=== PATIENT | female | born 1985 | race Two or more races ===

== ENCOUNTER 2020-07-08 15:44 | Emergency (ER) | payer MEDICAID ==
[~2020-07-08] VITALS: Ht 165.1 cm; Wt 68.0 kg
[2020-07-08] MEDS ORDERED: SODIUM CHLORIDE 0.9% 1,000 ML IV ONE (16:50)
[2020-07-08 17:16] LABS: BASOPHILS % 0.8 % (0.0-2.0); EOSINOPHILS % 3.2 % (0.0-5.0); HEMATOCRIT. 38.6 % (36.0-48.0); HEMOGLOBIN. 12.8 g/dL (12.0-16.0); MEAN CORPUSCULAR HEMOGLOBIN 25.9 pg (28.0-32.0); MEAN PLATELET VOLUME 9.9 fl (7.4-10.4); PLATELET 229 x1000/uL (130-400); RED BLOOD CELL COUNT 4.94 mill/uL (4.2-5.4); RED CELL DISTRIBUTION WIDTH 14.4 % (11.6-14.6)
[2020-07-08 17:23] LABS: CHLORIDE 107 mEq/L (98-107)
[2020-07-08] MEDS ORDERED: ACETAMINOPHEN 500MG TABLET PO NR (18:00)
[2020-07-08 18:05] VITALS: BP 127/50
[2020-07-08 19:11] LABS: CLARITY URINE CLEAR (CLEAR); COLOR URINE YELLOW (YELLOW); KETONES URINE NEGATIVE (NEGATIVE); LEUKOCYTE ESTERASE URINE TRACE (NEGATIVE); NITRITE URINE NEGATIVE (NEGATIVE); OCCULT BLOOD URINE NEGATIVE (NEGATIVE); PROTEIN URINE NEGATIVE (NEGATIVE); SPECIFIC GRAVITY URINE 1.015 (1.005-1.030); UROBILINOGEN URINE 0.2 E.U./dL (0.2-1.0)
== END 2020-07-08 18:30 | disposition home or self-care (01) ==
LOC: ER 15:44
DX: R51 Headache (principal); R42 Dizziness and giddiness; R53.1 Weakness
CPT/HCPCS: 36415; 80053; 81003; 81025; 82962; 85025; 85651; 93005; 96360; 99284; J7030

== ENCOUNTER 2020-10-04 00:56 | Emergency (ER) | payer OTHER, MEDICAID ==
[~2020-10-04] VITALS: Ht 165.1 cm; Wt 59.0 kg
[2020-10-04] MEDS ORDERED: IPRATROPIUM BROMIDE (0.02%) 0.5MG/2.5ML NEB HHN STA (01:45)
[2020-10-04] MEDS ORDERED: PREDNISONE 20MG TABLET PO STA (01:45)
[2020-10-04] MEDS ORDERED: ALBUTEROL (0.083%) 2.5MG/3ML NEB HHN STA (01:45)
[2020-10-04 04:55] VITALS: BP 109/58
== END 2020-10-04 04:57 | disposition home or self-care (01) ==
LOC: ER 00:56
DX: J45.901 Unspecified asthma with (acute) exacerbation (principal); Z20.828 Contact with and (suspected) exposure to other viral communicable diseases
CPT/HCPCS: 71045; 87635; 93005; 99285; C9803; J7512; Z7610; 94640